=== PATIENT | male | born 1965 | race Caucasian/White ===

== ENCOUNTER 2019-01-13 21:16 | Emergency (ER) | payer BC, OTHER ==
[~2019-01-13] VITALS: Ht 195.6 cm; Wt 104.3 kg
--- NOTE | 2019-01-13 22:17 | Diagnostic Imaging Report ---
EXAMINATION: PA and lateral views of the chest. COMPARISON: None CLINICAL HISTORY: Tachycardia, no chest pain DISCUSSION: Lines/tubes: None. Lungs: The lungs are well inflated and grossly clear. Linear opacity projecting in the medial aspect of the right lower lung likely reflects subsegmental atelectasis. There is no evidence of pneumonia or pulmonary edema. Pleura: There is no pleural effusion or pneumothorax. Heart and mediastinum: Cardiomediastinal silhouette is unremarkable. Pulmonary vasculature is normal. Bones and soft tissues: No acute bony abnormalities. IMPRESSION: No acute cardiopulmonary abnormalities. Signed by: Dr. Horace Rashid M.D. on 01/13/2019 10:13 PM
[2019-01-13] MEDS ORDERED: POTASSIUM CHLORIDE 20 MEQ TAB CR PO STA (22:22)
--- NOTE | 2019-01-13 22:30 | NUR ---
PT INITALLY WAS TO BE DISCHARGEED BY AT 2230 BUT PATIENT STILL FELT LIKE HE NEEDED TO BE CHECKED OUT FURTHER, WANTED TIME TO THINK WHETHER MD COULD ADMIT TO HOSPITAL OR DISCHARGE PATIENT WITH FURTHER WORKUPS POSSIBLY NEEDED ON AN OUTPATIENT BASIS, MD AGREED TO HAVE PATIENT DECIDE IF POSSIBLE ADMISSION NEEDED OR DC HOME, MD ENTERED ROOM AT 2300 AT WHICH TIME PATIENT ASKED IF HE COULD STAY TILL MIDNIGHT AND THEN GO HOME, AGAIN PATIENT FELT HE WASN'T READY TO BE DISCHARGED, PT STATES HE STILL FEELS LIKE HIS VITAL SIGNS ARE NOT NORMAL? PT HR HAS BEEN IN 90'S WITH OCCASIONAL 80'S ON MONITOR, SATS GREATER THAN 97% ON RA, AND LAST BP READING WAS 129/80. WILL CONTINUE TO MONITOR.
--- OUTSIDE RECORDS SUMMARY | 2019-01-13 23:00 | XMS REPORT ---
Author Author [facility] [place] Address Unknown Phone Unavailable Care Team Providers Care Inweaver Name Role Phone GINNA SAENZ Unavailable Unavailable Problems This patient has no known problems. Allergies, Adverse Reactions, Alerts This patient has no known allergies or adverse reactions. Medications This patient has no known medications. Results Test Description Test Time Test Comments Text Results Atomic Results Result Comments [facility] 2019-01-13 22:13:00 [place] [id number] Patient Name: LORIE ALEXIS MR #: [id number] : 1965 Age/Sex: 53/M Req #: [id number] [facility] Physician: Ordered by: GNINA SAENZ MD Report #: [id number] Location: [facility] Room/Bed: Procedure: [id number] HOPD/CXR [address] [facility] Exam Date: 01/13/19 Exam Time: 2156 REPORT STATUS: Signed EXAMINATION: PA and lateral views of the chest. COMPARISON: None CLINICAL HISTORY: Tachycardia, no chest pain DISCUSSION: Lines/tubes: None. Lungs: The lungs are well inflated and grossly clear. Linear opacity projecting in the medial aspect of the right lower lung likely reflects subsegmental atelectasis. There is no evidence of pneumonia or pulmonary edema. Pleura: There is no pleural effusion or pneumothorax. Heart and mediastinum: Cardiomediastinal silhouette is unremarkable. Pulmonary vasculature is normal. Bones and soft tissues: No acute bony abnormalities. IMPRESSION: No acute cardiopulmonary abnormalities. Signed by: Dr. Josefina Rashid M.D. on 01/13/2019 10:13 PM Dictated By: JOSEFINA RASHID MD 12 Transcribed By: ANTHONY on 01/13/192212 COPY TO: GINNA SAENZ MD
== END 2019-01-13 23:41 | disposition home or self-care (01) ==
LOC: FSED 21:16
DX: R00.2 Palpitations (principal); I42.9 Cardiomyopathy, unspecified
CPT/HCPCS: 71046; 80048; 80076; 82553; 84484; 85025; 93005; 99284